=== PATIENT | female | born 1985 | race Asian ===

== ENCOUNTER → 2016-03-17 | Outpatient (CLI) | payer OTHER ==
[2016-03-17 18:33] LABS: BASO % 0.5 % (0.0-1.0); EOS % 0.7 % (0.0-3.0); LARGE UNSTAINED CELL # 0.1 K/mm3 (0.0-0.4); LARGE UNSTAINED CELL % 1.6 % (0.0-4.0); LYMPH # 1.3 K/mm3 (1.5-4.5); LYMPH % 24.2 % (24.0-44.0); MEAN CORPUSCULAR HEMOGLOBIN 32.4 pg (27.0-33.0); MEAN CORPUSCULAR HGB CONC 33.6 g/dl (32.0-36.5); MEAN CORPUSCULAR VOLUME 96.3 fl (80.0-96.0); MONO # 0.2 K/mm3 (0.0-0.8); MONO % 4.7 % (0.0-5.0); NEUTROPHILS # 3.5 K/mm3 (1.8-7.7); NEUTROPHILS % 68.3 % (36.0-66.0); PLATELET COUNT, AUTOMATED 156 k/mm3 (150-450); RED CELL DISTRIBUTION WIDTH 11.7 % (11.5-14.5); WHITE BLOOD COUNT 5.2 K/mm3 (4.0-10.0)
[2016-03-18 08:40] LABS: CONTROL LINE INT CTR LINE PRESENT; HIV SCRN NEGATIVE (NEGATIVE); HIV SCRN1 NEGATIVE (NEGATIVE)
[2016-03-19 09:57] LABS: HBsAg Prenatal NEGATIVE (NEGATIVE)
== END ==
LOC: M LRY 10:33
PROVIDERS: ATTEND Advanced Practice Midwife
DX: Z36 Encounter for antenatal screening of mother (principal)

== ENCOUNTER 2016-03-20 00:40 | Emergency (ER) | payer OTHER ==
[2016-03-20 01:48] LABS: MEAN CORPUSCULAR HEMOGLOBIN 32.9 pg (27.0-33.0); MEAN CORPUSCULAR HGB CONC 34.9 g/dl (32.0-36.5); MEAN CORPUSCULAR VOLUME 94.4 fl (80.0-96.0); RED CELL DISTRIBUTION WIDTH 11.6 % (11.5-14.5); WHITE BLOOD COUNT 5.3 K/mm3 (4.0-10.0)
--- NOTE | 2016-03-20 02:50 | REPUSA ---
CLINICAL HISTORY: determination. TECHNIQUE: Transabdominal and endovaginal ultrasound of the pelvis was performed. FINDINGS: Single, live intrauterine gestation. [place]-rump length measures 2.6 cm. This corresponds to an estimated gestation age of 9 weeks and 3 da ys. heart rate 175 beats per minute. Small subchorionic hemorrhage is identified measuring 2.5x1x2.1 cm. Right ovarian cyst, likely corpus luteum. It measures 1.5x1.3 cm. IMPRESSION: Single, live intrauterine gestation. Right ovarian corpus luteum cyst.
--- NOTE | 2016-03-20 04:18 | EDDOCDS ---
Nurse's Notes [facility] Name: Kizzy Weiner Age: 30 yrs Sex: Female : 1985 Arrival Date: 03/20/2016 Time: 00:40 Bed 10 Private MD: Diagnosis: Threatened ;Other abnormal uterine and vaginal bleeding-subchorianic hemorrhage Presentation: 03/20 00:47 Presenting complaint: Patient states: 10 Weeks with heavy bright red vaginal lf1 bleeding that began 2 hours ago - no clots. Lower abdominal and back cramping. Risk factors: The patient reports no loss of conciousness prior to arrival. This patient has not had a hysterectomy. This patient has not begun menopause. Adult Sepsis Screening: The patient does not have new or worsening altered mentation. 00:47 Acuity: LISBETH Level 3 lf1 00:47 Adult Sepsis Screening: Systolic blood pressure is greater than 100. Patient has a lf1 qSOFA score of 0- Negative Sepsis Screen. Suicide/Homicide risk assessment- the patient denies having any suicidal and/or homicidal ideations and does not present with any other emotional, behavioral or mental health complaints. 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 Transition of care: patient was not received from another setting of care. 00:47 Method Of Arrival: Walkin/Carried/Asstd lf1 00:57 Presenting complaint: Patient states: Pt reports that she is filling one pad in less lf1 than ten minutes. Triage Assessment: 00:53 General: Appears in no apparent distress, comfortable, Behavior is cooperative. Pain: lf1 Denies pain. HIV screening NA for this visit. Neurological: Level of Consciousness is awake, alert, Oriented to person, place, time. Respiratory: Respiratory effort is even, unlabored. GI: Denies nausea. : Reports vaginal bleeding that is bright red heavy flow since 2 hours. Derm: Skin is normal. 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 none - PMHx: none; - PSHx: none; - Social history: Smoking status: Patient states was never smoker of tobacco. No barriers to communication noted, The patient speaks fluent Omani, Speaks appropriately for age, Preferred Language: Omani. - Family history: Not pertinent. - : The pt / caregiver states he / she is not on anticoagulants. Home medication list is obtained from the patient. - Exposure Risk Screening:: None identified. Screenin:14 Screening information is obtained from the patient. Fall risk: No risks identified. kas2 Assistance ADL's: requires no assistance with activities of daily living. Abuse/DV Screen: The patient / caregiver reports he/she is: not in a situation that causes fear, pain or injury. Nutritional screening: No deficits noted. Advance Directives: Currently, there is no health care proxy. There is no active DNR order. There is no living will. There is no Power of Stock Analyst. home support is adequate. Assessment: 01:11 General: Appears in no apparent distress, comfortable, well nourished, well groomed, kas2 Behavior is appropriate for age, cooperative. Pain: Location: suprapubic area Pain currently is 3 out of 10 on a pain scale. Pain does not radiate. Neurological: Level of Consciousness is awake, alert, Oriented to person, place, time. Cardiovascular: Rhythm is regular. Respiratory: Airway is patent Respiratory effort is even, unlabored, Respiratory pattern is regular, symmetrical, Breath sounds are clear bilaterally. : Reports vaginal bleeding that is bright red with clots heavy flow since 2 hours ago. Derm: Skin is intact, Skin is dry, Skin is pale, Skin temperature is warm. 01:56 General: Patient gone to US via wheelchair with tech.. kas2 02:15 General: Patient back from US via wheelchair with tech. Resettled in bed.. kas2 03:05 General: Appears in no apparent distress, comfortable, Behavior is appropriate for age, kas2 cooperative. Pain: Location: pelvis and suprapubic area Pain currently is 2 out of 10 on a pain scale. Neurological: Level of Consciousness is awake, alert, Oriented to person, place, time. Respiratory: Airway is patent Respiratory effort is even, unlabored, Respiratory pattern is regular, symmetrical. Derm: Skin is intact, Skin is dry, Skin is pale, Skin temperature is warm. Vital Signs: 00:47 BP 114 / 68 RA Sitting (man/); Pulse 71; Resp 16; Temp 97.4(O); Pulse Ox 100% on R/A; lf1 Weight 45.36 kg; Height 5 ft. 2 in. (157.48 cm); Pain 0/10; 04:15 BP 107 / 52; Pulse 69; Resp 18; Temp 97.6(O); Pulse Ox 99% on R/A; Pain 0/10; kas2 00:47 Body Mass Index 18.29 (45.36 kg, 157.48 cm) [facility] Vitals: 00:47 Log In Time: March 20, 2016 at 00:40. [facility] ED Course: 00:41 Patient visited by Kyler Quinteros Reg. pm4 00:41 Patient moved to Waiting pm4 00:50 Triage Initiated lf1 00:55 Pamela Kendall RN is Primary Nurse. lf1 00:55 Patient visited by Frantz Thomas PA. mo1 00:55 Patient moved to 10 lf1 01:14 Patient visited by Pamela Kendall RN. kas2 01:17 Kun Abernathy DO is Attending Physician. mm11 01:17 Patient visited by Kun Abernathy DO. mm11 01:26 Patient visited by Kun Abernathy DO. mm11 01:38 Patient visited by Pamela Kendall RN. kas2 01:38 Type & Screen Sent. kas2 01:38 Hcg, Serum Quantitative Sent. kas2 01:38 Complete Blood Count Sent. kas2 01:38 Inserted saline lock: 20 gauge in left antecubital area and blood collected. The kas2 patient tolerated the procedure well. No procedures done that require assistance. 01:56 Patient visited by Pamela Kendall RN. kas2 02:03 Patient moved to Ultrasound en 02:03 Patient moved to 10 en 02:24 Patient visited by Pamela Kendall RN. kas2 02:36 [facility] Payment Agreement was scanned into [employer] and attached to record. hs2 02:56 Patient visited by Pamela Kendall RN. kas2 03:03 US 1st trimester Returned. EDMS 03:35 Patient visited by Pamela Kendall RN. kas2 04:01 Robbie Rousseau MD is Referral Physician. mm11 04:16 Discontinued IV bleeding controlled, pressure dressing applied, No redness/swelling at [facility] site. 04:17 Patient visited by Pamela Kendall RN. kas2 04:17 The patient / caregiver is instructed regarding the plan of care and ED course. kas2 Order Results: Lab Order: Complete Blood Count; [facility] 03/20/16 01:36 Test: WHITE BLOOD COUNT; Value: 5.3; Range: 4.0-10.0; Units: K/mm3; Status: F Test: RED BLOOD COUNT; Value: 3.69; Range: 4.00-5.40; Abnormal: Below low normal; Units: M/mm3; Status: F Test: HEMOGLOBIN; Value: 12.1; Range: 12.0-16.0; Units: g/dl; Status: F Test: HEMATOCRIT; Value: 34.8; Range: 36.0-47.0; Abnormal: Below low normal; Units: %; Status: F Test: MEAN CORPUSCULAR VOLUME; Value: 94.4; Range: 80.0-96.0; Units: fl; Status: F Test: MEAN CORPUSCULAR HEMOGLOBIN; Value: 32.9; Range: 27.0-33.0; Units: pg; Status: F Test: MEAN CORPUSCULAR HGB CONC; Value: 34.9; Range: 32.0-36.5; Units: g/dl; Status: F Test: RED CELL DISTRIBUTION WIDTH; Value: 11.6; Range: 11.5-14.5; Units: %; Status: F Test: PLATELET COUNT, AUTOMATED; Value: 139; Range: 150-450; Abnormal: Below low normal; Units: k/mm3; Status: F Lab Order: Hcg, Serum Quantitative; [facility]03/20/16 01:36 Test: HCG, SERUM QUANTITATIVE; Value: 28370; Units: MIU/ML; Status: F Test Note: ; GESTATIONAL AGE APPROXIMATE HCG RANGE (MIU/ML) 0.2-1 WEEK 5-50 1-2 WEEKS 50-500 2-3 WEEKS 100-5,000 3-4 WEEKS 500-10,000 4-5 WEEKS 1,000-50,000 5-6 WEEKS 10,000-100,000 6-8 WEEKS 15,000-200,000 2-3 MONTHS 10,000-100,000 NON FEMALES LESS THAN 3.0 Patient samples may contain human heterophilic antibodies that could react with immunoassays to give falsely elevated or depressed results. This assay has been designed to minimize interference from heterophilic antibodies. Elevated hCG levels have also been associated with trophoblastic disease and nontrophoblastic neoplasms. The possibility of having these diseases should be considered before a diagnosis of is made. This test is not intended for use as a surrogate marker for aiding in the diagnosis or monitoring the treatment of cancer patients. Siemens MyWave methodology. Lab Order: Type & Screen; [facility] 03/20/16 01:36 Test: BLOOD TYPE; Value: O POS; Status: F Test: AB SCREEN (INDIRECT DAVIS)GEL; Value: NEGATIVE; Status: F Radiology Order: US 1st trimester Test: US 1st trimester REASON FOR EXAMINATION: Bleeding; ; CLINICAL HISTORY: determination.; TECHNIQUE: Transabdominal and endovaginal ultrasound of the pelvis was performed.; FINDINGS:; Single, live intrauterine gestation.; [place]-rump length measures 2.6 cm. This corresponds to an estimated gestation age of 9 weeks and 3 da; ys.; heart rate 175 beats per minute.; Small subchorionic hemorrhage is identified measuring 2.5x1x2.1 cm.; Right ovarian cyst, likely corpus luteum. It measures 1.5x1.3 cm.; IMPRESSION:; Single, live intrauterine gestation.; Right ovarian corpus luteum cyst.; ; Outcome: 04:01 Discharge ordered by Provider. mm11 04:16 Discharge Assessment: patient administered narcotics - no. The following High Risk [facility] Discharge criteria are identified: None. Discharged to home ambulatory, with significant other. Condition: good Condition: stable Condition: improved. Ultrasound Study completed. Property :Personal belongings accompany Pt. 04:17 Patient left the ED. [facility] Signatures: Dispatcher [employer] EDMS Kate Ayala RN RN lf1 Kun Abernathy DO DO mm11 Frantz Thomas PA PA delvin1 Lois Weinstein Hillary, Reg Reg hs2 Pamela Kendall RN RN kas2 Kyler Quinteros, Reg Reg pm4 MTDD
--- NOTE | 2016-03-20 04:18 | EDDOCDS ---
Physician Documentation [facility] Name: Kizzy Weiner Age: 30 yrs Sex: Female : 1985 Arrival Date: 03/20/2016 Time: 00:40 Bed 10 Private MD: Disposition: 03/20/16 04:01 Discharged to Home/Self Care. Impression: Threatened , Other abnormal uterine and vaginal bleeding - subchorianic hemorrhage. - Condition is Stable. - Discharge Instructions: Threatened Miscarriage, Subchorionic Hematoma, Threatened Miscarriage, [id number]. - Medication Reconciliation, Local Pharmacy Hours form. - Follow up: Robbie Rousseau MD; When: Call to arrange an appointment; Reason: Continuance of care. - Problem is an acute exacerbation. - Symptoms have improved. Historical: - Allergies: No known drug Allergies; - Home Meds: 1. none - PMHx: none; - PSHx: none; - Social history: Smoking status: Patient states was never smoker of tobacco. No barriers to communication noted, The patient speaks fluent Uzbek, Speaks appropriately for age, Preferred Language: Uzbek. - Family history: Not pertinent. - : The pt / caregiver states he / she is not on anticoagulants. Home medication list is obtained from the patient. - Exposure Risk Screening:: None identified. 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 2 in. (157.48 cm); Pain 0/10; 04:15 BP 107 / 52; Pulse 69; Resp 18; Temp 97.6(O); Pulse Ox 99% on R/A; Pain 0/10; kas2 00:47 Body Mass Index 18.29 (45.36 kg, 157.48 cm) lf1 MDM: 01:27 IV Saline Lock ordered. mm11 01:27 Undress patient appropriately for examination ordered. mm11 01:28 US 1st trimester Ordered. EDMS 01:28 Complete Blood Count Ordered. EDMS 01:28 Hcg, Serum Quantitative Ordered. EDMS 01:28 Type & Screen Ordered. EDMS 01:58 DUPLEX SCAN LIMITED (DOPPLER) Ordered. EDMS 02:03 Financial registration complete. hs2 02:36 [facility] Payment Agreement was scanned into [employer] and attached to record. hs2 02:47 Complete Blood Count Reviewed. mm11 02:47 Hcg, Serum Quantitative Reviewed. mm11 02:47 Type & Screen Reviewed. mm11 03:48 US 1st trimester Reviewed. mm11 Signatures: Dispatcher [employer] EDMS Kate Ayala,RN RN lf1 Kun Abernathy, DO mm11 Tammy Perez, Reg Reg hs2 Pamela Kendall RN RN kas2 The chart was reviewed and I authenticate all verbal orders and agree with the evaluation and treatment provided.Attachments: 02:36 [facility] Payment Agreement hs2 MTDD
--- NOTE | 2016-03-22 05:18 | EDDOCDS ---
Nurse's Notes [facility] Name: Kizzy Weiner Age: 30 yrs Sex: Female : 1985 Arrival Date: 03/20/2016 Time: 00:40 Bed 10 Private MD: Diagnosis: Threatened ;Other abnormal uterine and vaginal bleeding-subchorianic hemorrhage Presentation: 03/20 00:47 Presenting complaint: Patient states: 10 Weeks with heavy bright red vaginal lf1 bleeding that began 2 hours ago - no clots. Lower abdominal and back cramping. Risk factors: The patient reports no loss of conciousness prior to arrival. This patient has not had a hysterectomy. This patient has not begun menopause. Adult Sepsis Screening: The patient does not have new or worsening altered mentation. 00:47 Acuity: LISBETH Level 3 lf1 00:47 Adult Sepsis Screening: Systolic blood pressure is greater than 100. Patient has a lf1 qSOFA score of 0- Negative Sepsis Screen. Suicide/Homicide risk assessment- the patient denies having any suicidal and/or homicidal ideations and does not present with any other emotional, behavioral or mental health complaints. Status: Patient is not a furniture servicer or dependent. Transition of care: patient was not received from another setting of care. 00:47 Method Of Arrival: Walkin/Carried/Asstd lf1 00:57 Presenting complaint: Patient states: Pt reports that she is filling one pad in less lf1 than ten minutes. Triage Assessment: 00:53 General: Appears in no apparent distress, comfortable, Behavior is cooperative. Pain: lf1 Denies pain. HIV screening NA for this visit. Neurological: Level of Consciousness is awake, alert, Oriented to person, place, time. Respiratory: Respiratory effort is even, unlabored. GI: Denies nausea. : Reports vaginal bleeding that is bright red heavy flow since 2 hours. Derm: Skin is normal. 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 none - PMHx: none; - PSHx: none; - Social history: Smoking status: Patient states was never smoker of tobacco. No barriers to communication noted, The patient speaks fluent Emirati, Speaks appropriately for age, Preferred Language: Emirati. - Family history: Not pertinent. - : The pt / caregiver states he / she is not on anticoagulants. Home medication list is obtained from the patient. - Exposure Risk Screening:: None identified. Screenin:14 Screening information is obtained from the patient. Fall risk: No risks identified. kas2 Assistance ADL's: requires no assistance with activities of daily living. Abuse/DV Screen: The patient / caregiver reports he/she is: not in a situation that causes fear, pain or injury. Nutritional screening: No deficits noted. Advance Directives: Currently, there is no health care proxy. There is no active DNR order. There is no living will. There is no Power of Fabricator Special Items. home support is adequate. Assessment: 01:11 General: Appears in no apparent distress, comfortable, well nourished, well groomed, kas2 Behavior is appropriate for age, cooperative. Pain: Location: suprapubic area Pain currently is 3 out of 10 on a pain scale. Pain does not radiate. Neurological: Level of Consciousness is awake, alert, Oriented to person, place, time. Cardiovascular: Rhythm is regular. Respiratory: Airway is patent Respiratory effort is even, unlabored, Respiratory pattern is regular, symmetrical, Breath sounds are clear bilaterally. : Reports vaginal bleeding that is bright red with clots heavy flow since 2 hours ago. Derm: Skin is intact, Skin is dry, Skin is pale, Skin temperature is warm. 01:56 General: Patient gone to US via wheelchair with tech.. kas2 02:15 General: Patient back from US via wheelchair with tech. Resettled in bed.. kas2 03:05 General: Appears in no apparent distress, comfortable, Behavior is appropriate for age, kas2 cooperative. Pain: Location: pelvis and suprapubic area Pain currently is 2 out of 10 on a pain scale. Neurological: Level of Consciousness is awake, alert, Oriented to person, place, time. Respiratory: Airway is patent Respiratory effort is even, unlabored, Respiratory pattern is regular, symmetrical. Derm: Skin is intact, Skin is dry, Skin is pale, Skin temperature is warm. Vital Signs: 00:47 BP 114 / 68 RA Sitting (man/); Pulse 71; Resp 16; Temp 97.4(O); Pulse Ox 100% on R/A; lf1 Weight 45.36 kg; Height 5 ft. 2 in. (157.48 cm); Pain 0/10; 04:15 BP 107 / 52; Pulse 69; Resp 18; Temp 97.6(O); Pulse Ox 99% on R/A; Pain 0/10; kas2 00:47 Body Mass Index 18.29 (45.36 kg, 157.48 cm) [facility] Vitals: 00:47 Log In Time: March 20, 2016 at 00:40. [facility] ED Course: 00:41 Patient visited by Kyler Quinteros Reg. pm4 00:41 Patient moved to Waiting pm4 00:50 Triage Initiated lf1 00:55 Pamela Kendall RN is Primary Nurse. lf1 00:55 Patient visited by Frantz Thomas PA. mo1 00:55 Patient moved to 10 lf1 01:14 Patient visited by Pamela Kendall RN. kas2 01:17 Kun Abernathy DO is Attending Physician. mm11 01:17 Patient visited by Kun Abernathy DO. mm11 01:26 Patient visited by Kun Abernathy DO. mm11 01:38 Patient visited by Pamela Kendall RN. kas2 01:38 Type & Screen Sent. kas2 01:38 Hcg, Serum Quantitative Sent. kas2 01:38 Complete Blood Count Sent. kas2 01:38 Inserted saline lock: 20 gauge in left antecubital area and blood collected. The kas2 patient tolerated the procedure well. No procedures done that require assistance. 01:56 Patient visited by Pamela Kendall RN. kas2 02:03 Patient moved to Ultrasound en 02:03 Patient moved to 10 en 02:24 Patient visited by Pamela Kendall RN. kas2 02:36 [facility] Payment Agreement was scanned into [employer] and attached to record. hs2 02:56 Patient visited by Pamela Kendall RN. kas2 03:03 US 1st trimester Returned. EDMS 03:35 Patient visited by Pamela Kendall RN. kas2 04:01 Robbie Rousseau MD is Referral Physician. mm11 04:16 Discontinued IV bleeding controlled, pressure dressing applied, No redness/swelling at [facility] site. 04:17 Patient visited by Pamela Kendall RN. kas2 04:17 The patient / caregiver is instructed regarding the plan of care and ED course. kas2 03/21 11:00 T-Sheet-- Draft Copy was scanned into [employer] and attached to record. gb Order Results: Lab Order: Complete Blood Count; [facility] 03/20/16 01:36 Test: WHITE BLOOD COUNT; Value: 5.3; Range: 4.0-10.0; Units: K/mm3; Status: F Test: RED BLOOD COUNT; Value: 3.69; Range: 4.00-5.40; Abnormal: Below low normal; Units: M/mm3; Status: F Test: HEMOGLOBIN; Value: 12.1; Range: 12.0-16.0; Units: g/dl; Status: F Test: HEMATOCRIT; Value: 34.8; Range: 36.0-47.0; Abnormal: Below low normal; Units: %; Status: F Test: MEAN CORPUSCULAR VOLUME; Value: 94.4; Range: 80.0-96.0; Units: fl; Status: F Test: MEAN CORPUSCULAR HEMOGLOBIN; Value: 32.9; Range: 27.0-33.0; Units: pg; Status: F Test: MEAN CORPUSCULAR HGB CONC; Value: 34.9; Range: 32.0-36.5; Units: g/dl; Status: F Test: RED CELL DISTRIBUTION WIDTH; Value: 11.6; Range: 11.5-14.5; Units: %; Status: F Test: PLATELET COUNT, AUTOMATED; Value: 139; Range: 150-450; Abnormal: Below low normal; Units: k/mm3; Status: F Lab Order: Hcg, Serum Quantitative; [facility]16 01:36 Test: HCG, SERUM QUANTITATIVE; Value: [id number]; Units: MIU/ML; Status: F Test Note: ; GESTATIONAL AGE APPROXIMATE HCG RANGE (MIU/ML) 0.2-1 WEEK 5-50 1-2 WEEKS 50-500 2-3 WEEKS 100-5,000 3-4 WEEKS 500-10,000 4-5 WEEKS 1,000-50,000 5-6 WEEKS 10,000-100,000 6-8 WEEKS 15,000-200,000 2-3 MONTHS 10,000-100,000 NON FEMALES LESS THAN 3.0 Patient samples may contain human heterophilic antibodies that could react with immunoassays to give falsely elevated or depressed results. This assay has been designed to minimize interference from heterophilic antibodies. Elevated hCG levels have also been associated with trophoblastic disease and nontrophoblastic neoplasms. The possibility of having these diseases should be considered before a diagnosis of is made. This test is not intended for use as a surrogate marker for aiding in the diagnosis or monitoring the treatment of cancer patients. Siemens Silvercar methodology. Lab Order: Type & Screen; [facility] 03/20/16 01:36 Test: BLOOD TYPE; Value: O POS; Status: F Test: AB SCREEN (INDIRECT DAVIS)GEL; Value: NEGATIVE; Status: F Radiology Order: US 1st trimester Test: US 1st trimester REASON FOR EXAMINATION: Bleeding; ; CLINICAL HISTORY: determination.; TECHNIQUE: Transabdominal and endovaginal ultrasound of the pelvis was performed.; FINDINGS:; Single, live intrauterine gestation.; [place]-rump length measures 2.6 cm. This corresponds to an estimated gestation age of 9 weeks and 3 da; ys.; heart rate 175 beats per minute.; Small subchorionic hemorrhage is identified measuring 2.5x1x2.1 cm.; Right ovarian cyst, likely corpus luteum. It measures 1.5x1.3 cm.; IMPRESSION:; Single, live intrauterine gestation.; Right ovarian corpus luteum cyst.; ; Outcome: 03/20 04:01 Discharge ordered by Provider. mm11 04:16 Discharge Assessment: patient administered narcotics - no. The following High Risk [facility] Discharge criteria are identified: None. Discharged to home ambulatory, with significant other. Condition: good Condition: stable Condition: improved. Ultrasound Study completed. Property :Personal belongings accompany Pt. 04:17 Patient left the ED. [facility] Signatures: Dispatcher [employer] [place] aPdilla, Reg Reg gb Kate Ayala RN RN lf1 Kun Abernathy, DO mm11 Frantz Thomas PA PA mo1 Lois Weinstein Hillary, Reg Reg hs2 Pamela Kendall RN RN kas2 Kyler Quinteros, Reg Reg pm4 Chart Complete MTDD
--- NOTE | 2016-03-22 05:18 | EDDOCDS ---
Physician Documentation [facility] Name: Kizzy Weiner Age: 30 yrs Sex: Female : 1985 Arrival Date: 03/20/2016 Time: 00:40 Bed 10 Private MD: Disposition: 03/20/16 04:01 Discharged to Home/Self Care. Impression: Threatened , Other abnormal uterine and vaginal bleeding - subchorianic hemorrhage. - Condition is Stable. - Discharge Instructions: Threatened Miscarriage, Subchorionic Hematoma, Threatened Miscarriage, [id number]. - Medication Reconciliation, Local Pharmacy Hours form. - Follow up: Robbie Rousseau MD; When: Call to arrange an appointment; Reason: Continuance of care. - Problem is an acute exacerbation. - Symptoms have improved. Historical: - Allergies: No known drug Allergies; - Home Meds: 1. none - PMHx: none; - PSHx: none; - Social history: Smoking status: Patient states was never smoker of tobacco. No barriers to communication noted, The patient speaks fluent Luxembour[place], Speaks appropriately for age, Preferred Language: Luxembourger. - Family history: Not pertinent. - : The pt / caregiver states he / she is not on anticoagulants. Home medication list is obtained from the patient. - Exposure Risk Screening:: None identified. 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 2 in. (157.48 cm); Pain 0/10; 04:15 BP 107 / 52; Pulse 69; Resp 18; Temp 97.6(O); Pulse Ox 99% on R/A; Pain 0/10; kas2 00:47 Body Mass Index 18.29 (45.36 kg, 157.48 cm) lf1 MDM: 01:27 IV Saline Lock ordered. mm11 01:27 Undress patient appropriately for examination ordered. mm11 01:28 US 1st trimester Ordered. EDMS 01:28 Complete Blood Count Ordered. EDMS 01:28 Hcg, Serum Quantitative Ordered. EDMS 01:28 Type & Screen Ordered. EDMS 01:58 DUPLEX SCAN LIMITED (DOPPLER) Ordered. EDMS 02:03 Financial registration complete. hs2 02:36 [facility] and attached to record. hs2 02:47 Complete Blood Count Reviewed. mm11 02:47 Hcg, Serum Quantitative Reviewed. mm11 02:47 Type & Screen Reviewed. mm11 03:48 US 1st trimester Reviewed. mm11 03/21 11:00 T-Sheet-- Draft Copy [facility] and attached to record. gb Signatures: Dispatcher [employer] EDMS Va Jones, Reg Reg gb Kate Ayala,RN RN lf1 Kun Abernathy, DO mm11 Tammy Perez, Reg Reg hs2 Pamela Kendall,RN RN kas2 The chart was reviewed and I authenticate all verbal orders and agree with the evaluation and treatment provided.Attachments: 03/20 02:36 [facility] Payment Agreement hs2 03/21 11:00 T-Sheet-- Draft Copy gb Chart Complete MTDD
--- NOTE | 2016-03-22 05:18 | EDDOCDS ---
Physician Documentation [facility] Name: Kizzy Weiner Age: 30 yrs Sex: Female : 1985 Arrival Date: 03/20/2016 Time: 00:40 Bed 10 Private MD: Disposition: 03/20/16 04:01 Discharged to Home/Self Care. Impression: Threatened , Other abnormal uterine and vaginal bleeding - subchorianic hemorrhage. - Condition is Stable. - Discharge Instructions: Threatened Miscarriage, Subchorionic Hematoma, Threatened Miscarriage, [id number]. - Medication Reconciliation, Local Pharmacy Hours form. - Follow up: Robbie Rousseau MD; When: Call to arrange an appointment; Reason: Continuance of care. - Problem is an acute exacerbation. - Symptoms have improved. Historical: - Allergies: No known drug Allergies; - Home Meds: 1. none - PMHx: none; - PSHx: none; - Social history: Smoking status: Patient states was never smoker of tobacco. No barriers to communication noted, The patient speaks fluent Kitt[place], Speaks appropriately for age, Preferred Language: Kittitian. - Family history: Not pertinent. - : The pt / caregiver states he / she is not on anticoagulants. Home medication list is obtained from the patient. - Exposure Risk Screening:: None identified. 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 2 in. (157.48 cm); Pain 0/10; 04:15 BP 107 / 52; Pulse 69; Resp 18; Temp 97.6(O); Pulse Ox 99% on R/A; Pain 0/10; kas2 00:47 Body Mass Index 18.29 (45.36 kg, 157.48 cm) lf1 MDM: 01:27 IV Saline Lock ordered. mm11 01:27 Undress patient appropriately for examination ordered. mm11 01:28 US 1st trimester Ordered. EDMS 01:28 Complete Blood Count Ordered. EDMS 01:28 Hcg, Serum Quantitative Ordered. EDMS 01:28 Type & Screen Ordered. EDMS 01:58 DUPLEX SCAN LIMITED (DOPPLER) Ordered. EDMS 02:03 Financial registration complete. hs2 02:36 [facility] Payment Agreement was scanned into [email or web address] and attached to record. hs2 02:47 Complete Blood Count Reviewed. mm11 02:47 Hcg, Serum Quantitative Reviewed. mm11 02:47 Type & Screen Reviewed. mm11 03:48 US 1st trimester Reviewed. mm11 03/21 11:00 T-Sheet-- Draft Copy was scanned into [email or web address] and attached to record. gb Signatures: Dispatcher [employer] EDMS Va Jones, Reg Reg gb Kate Ayala,RN RN lf1 Kun Abernathy, DO mm11 Tammy Perez, Reg Reg hs2 Pamela Kendall,RN RN kas2 The chart was reviewed and I authenticate all verbal orders and agree with the evaluation and treatment provided.Attachments: 03/20 02:36 [facility] Payment Agreement hs2 03/21 11:00 T-Sheet-- Draft Copy gb Chart Complete MTDD
== END 2016-03-20 04:17 | disposition home or self-care (01) ==
LOC: M ED 00:40
DX: O20.0 Threatened abortion (principal); Z3A.10 10 weeks gestation of pregnancy

== ENCOUNTER → 2016-05-06 | Outpatient (CLI) | payer OTHER | LOC: M LRY 14:44 | PROVIDERS: ATTEND Advanced Practice Midwife | DX: Z36 Encounter for antenatal screening of mother (principal); Z13.79 Encounter for other screening for genetic and chromosomal anomalies; E11.9 Type 2 diabetes mellitus without complications ==

== ENCOUNTER → 2016-05-22 | Outpatient (CLI) | payer OTHER ==
--- NOTE | 2016-05-22 16:44 | REP ---
Obstetric ultrasound for anatomy: There is a single intrauterine gestation in a vertex presentation. There is motion and cardiac activity, the heart rate is 147 beats per minute. The placenta is posterior. There is no placenta previa or abruptio. The placenta demonstrates grade zero maturity. The amniotic fluid volume subjectively is normal. The cervix is 3.3 cm length. By today's ultrasound the gestational age is 18 weeks 6 days. There is no KATEY D E on the worksheet. Gestational age by the first ultrasound during this gestation is 19 weeks 2 days and by LMP 19 weeks 2 days. The KATEY for 19 weeks 2 days is 10/14/2016. weight is 233 grams (0 pounds, 8 ounces). This is the 25th percentile for 19 weeks 2 days. The following anatomic structures are identified and are unremarkable. Cranium, choroid plexus, cavum, cerebellum, cisterna magna, nuchal fold, face, facial profile, balloon lungs, four-chamber heart, cardiac right and left ventricular outflow tracts, diaphragm, stomach, cord insertion, three-vessel cord, kidneys, bladder, spine and upper lower extremities. No anomalies are identified. Signed by Clemente Roberts MD 05/22/2016 04:35 P
== END ==
LOC: M LRY 14:05
PROVIDERS: ATTEND Advanced Practice Midwife
DX: Z34.82 Encounter for supervision of other normal pregnancy, second trimester (principal)

== ENCOUNTER → 2016-07-08 | Outpatient (CLI) | payer OTHER ==
[2016-07-08 17:16] LABS: BASO % 0.2 % (0.0-1.0); EOS # 0.1 K/mm3 (0.0-0.50); EOS % 1.1 % (0.0-3.0); LARGE UNSTAINED CELL # 0.1 K/mm3 (0.0-0.4); LARGE UNSTAINED CELL % 1.2 % (0.0-4.0); LYMPH # 1.1 K/mm3 (1.5-4.5); LYMPH % 16.5 % (24.0-44.0); MEAN CORPUSCULAR HEMOGLOBIN 34.4 pg (27.0-33.0); MEAN CORPUSCULAR HGB CONC 34.3 g/dl (32.0-36.5); MEAN CORPUSCULAR VOLUME 100.3 fl (80.0-96.0); MONO # 0.3 K/mm3 (0.0-0.8); MONO % 4.7 % (0.0-5.0); NEUTROPHILS % 76.3 % (36.0-66.0); PLATELET COUNT, AUTOMATED 174 k/mm3 (150-450); RED CELL DISTRIBUTION WIDTH 13.1 % (11.5-14.5); WHITE BLOOD COUNT 6.5 K/mm3 (4.0-10.0)
== END ==
LOC: M LRY 13:43
PROVIDERS: ATTEND Advanced Practice Midwife
DX: Z34.83 Encounter for supervision of other normal pregnancy, third trimester (principal)